=== PATIENT | female | born 1960 | race American Indian/Alaskan Native ===

== ENCOUNTER 2020-02-27 23:19 | Emergency (ER) | payer BC ==
--- NOTE | 2020-02-28 00:05 | XRay Report ---
CHEST 1 VIEW INDICATION / CLINICAL INFORMATION: cough fever weak. COMPARISON: None available. FINDINGS: SUPPORT DEVICES: None. HEART / MEDIASTINUM: Heart size is mildly enlarged LUNGS / PLEURA: No significant pulmonary or pleural abnormality. No pneumothorax. ADDITIONAL FINDINGS: No significant additional findings. IMPRESSION: Mild cardiomegaly. No acute pulmonary or pleural abnormality Signer Name: Eleuterio Prabhakar MD FACR Signed: 02/28/2020 12:00 AM Workstation Name: [id number]
--- NOTE | 2020-02-28 00:12 | Emergency Department Report ---
ED General Adult HPI - General Chief complaint: Fall Stated complaint: i came here because my son wanted me to get checked out Time Seen by Provider: 02/27/20 23:30 Source: patient, EMS ( EMS documentation not available at time of chart dictation ), RN notes reviewed Mode of arrival: Ambulatory Limitations: No Limitations - History of Present Illness Initial comments: During the entire history and physical examination, And for all subsequent patient encounters, this provider had on complete personal protective equipment as per this hospital's policy and procedures/protocols. The patient is a 59-year-old female who is not known to myself previously. She has a history of multiple myeloma, and reportedly takes chronic chemotherapy for this, and also reports a history of stem cell transplant, performed in 2018 at [facility]. She follows up with [facility] once a month. She did not follow-up with them this month, and her appointment has been rescheduled to the end of February. She presents to the ER with a complaint of "I came here because my son wants me to get checked out." She reports a history of few mechanical falls over the past few days and weeks. She typically walks with a walker, and reports that she was not walking with her walker, and she felt generally weak, and stumbled, landing on her bilateral elbows. Prior to the fall, there is no complaint of headache, neck pain, chest pain, abdominal pain, shortness of breath. There is a dry cough, without fever, vomiting, diaphoresis, rhinorrhea, or sore throat. There is no complaint of chest pain, abdominal pain, shortness of breath, irritative/obstructive urinary symptoms. The patient denies focal extremity weakness and/or numbness. She is not having physical pain at this time. She is mostly seeking reassurance. She does not have any coronavirus exposures that she is aware of. -: days(s) Consistency: intermittent Improves with: none Worsens with: none - Related Data Allergies Allergy/AdvReac Type Severity Reaction Status Date / Time No Known Allergies Allergy Verified 02/28/20 01:25 ED Review of Systems ROS: Stated complaint: COUGH,FEVER,WEAKNESS Other details as noted in HPI Constitutional: denies: chills, fever ENT: denies: throat pain, congestion Respiratory: denies: cough, wheezing Cardiovascular: denies: syncope Gastrointestinal: denies: abdominal pain Genitourinary: denies: urgency Musculoskeletal: denies: as per HPI Skin: as per HPI Neurological: as per HPI. denies: numbness, paresthesias, confusion Psychiatric: as per HPI Hematological/Lymphatic: as per HPI. denies: easy bleeding ED Physical Exam - General Limitations: No Limitations General appearance: alert, in no apparent distress - Head Head exam: Present: atraumatic, normocephalic - Eye Eye exam: Present: normal appearance, PERRL, EOMI, other (Visual acuity intact to finger counting, color perception, reading at a close distance). Absent: nystagmus - ENT ENT exam: Present: normal exam, normal orophraynx, mucous membranes moist, normal external ear exam - Neck Neck exam: Present: normal inspection, full ROM. Absent: tenderness, meningismus - Respiratory Respiratory exam: Present: normal lung sounds bilaterally. Absent: respiratory distress - Cardiovascular Cardiovascular Exam: Present: regular rate, normal rhythm, normal heart sounds. Absent: bradycardia, tachycardia, irregular rhythm, systolic murmur, diastolic murmur, rubs, gallop - GI/Abdominal GI/Abdominal exam: Present: soft. Absent: distended, tenderness, guarding, rebound, rigid, pulsatile mass - Extremities Exam Extremities exam: Present: normal inspection, full ROM, other (2+ pulses noted in the bilateral upper and lower extremities. There is no palpable cord. negative Homans sign. Muscular compartments are soft. The pelvis is stable.). Absent: pedal edema, calf tenderness - Back Exam Back exam: Present: normal inspection, full ROM. Absent: tenderness, CVA tenderness (R), CVA tenderness (L), paraspinal tenderness, vertebral tenderness - Neurological Exam Neurological exam: Present: alert, oriented X3, normal gait, other (There is no facial droop. The tongue is midline. Extraocular movements are intact bilaterally. There is 5 out of 5 strength in bilateral upper and lower extremities. Sensation is intact to light touch bilateral upper and lower extremities. There is no past-pointing. There is no pronator drift. There is normal [id number]. There is a normal gait.). Absent: motor sensory deficit - Psychiatric Psychiatric exam: Present: anxious - Skin Skin exam: Present: warm, dry, intact, normal color. Absent: rash ED Course Vital Signs 02/28/20 02/28/20 02/28/20 01:04 01:08 01:12 Temperature 101.9 F H Pulse Rate 75 Respiratory 15 16 Rate Blood Pressure 94/65 O2 Sat by Pulse 97 96 96 Oximetry 02/28/20 02/28/20 02/28/20 02:00 03:00 03:37 Temperature 98.8 F Pulse Rate Respiratory Rate Blood Pressure 94/52 92/56 O2 Sat by Pulse 96 95 Oximetry - Reevaluation(s) Reevaluation #1: 02/28/20 01:04 Differential diagnosis, including but not limited to: Deconditioning, general medical evaluation, electrolyte derangement, anemia, pneumonia, coronavirus screening Assessment and plan: 59-year-old female with a history of stem cell transplant and multiple myeloma, without fever, sore throat, rhinorrhea, chest pain, history of mechanical fall, and dry cough. I do not have a high pretest pr obability for coronavirus. The patient is currently afebrile with reassuring vital signs with a benign and unremarkable physical examination, and walks with a steady gait without assistance. She does not have any long bony tenderness. We will check appropriate screening laboratory studies, including ferritin, LDH, and d-dimer to assist in risk stratification for possible coronavirus. However, do not suspect active disease at this time. She endorses a dry cough for the past 4 to 5 days. X-ray the chest is unremarkable. Saturating well on room air. We will reassess after her initial data points have resulted. Reevaluation #2: 02/28/20 02:22 Laboratory studies are reviewed and appreciated. Patient resting comfortably and she is in no acute distress. Today's day 5 of symptoms. I discussed the patient's laboratory studies, vital signs, and fever with the patient. She states that she always has "low blood pressure." She is not hypoxic and has no respiratory symptoms. She is not really experiencing any constitutional symptoms at this time. The patient states that she is reliable to go home, self monitor, self quarantine as she has been doing, and have her son carefully watch over her. I had an extensive discussion with the patient, and we discussed various options, including the aforementioned. I also discussed the option of admitting the pa tient to the hospital for observation for supportive care. However, the patient does not want to be admitted to the hospital at this time, as she is concerned about exposure to the coronavirus. Patient and I discussed risks, benefits, alternatives to discharge home with self quarantine and monitor ing, versus admission to the hospital for observation. The patient is quite adamant and certain that she would like to be discharged home, and endorses that she is reliable to follow-up. She also endorses that she is reliable to have her son watch over her. Therefore, through shared decision making, we agreed to discharge the patient to follow-up in 2 days for a repeat checkup and evaluation. Patient's information will be submitted to the [facility] persons under investigation website. Reevaluation #3: 02/28/20 18:16 Called patient to follow-up. She states that she feels "fine." No respiratory issues, no physical pain at this time. She has also gotten in touch with her outpatient physician. I informed the patient that if she felt this way tomorrow, she did not necessarily need to come in for recheck. She has verbalized understanding. She continues to reiterate that she is reliable for follow-up. ED Medical Decision Making - Lab Data Result diagrams: 02/28/20 00:32 02/28/20 00:32 Vital Signs 02/28/20 01:08 Temperature 101.9 F H Pulse Rate 75 Respiratory 15 Rate Blood Pressure 94/65 O2 Sat by Pulse 96 Oximetry Lab Results 02/28/20 02/28/20 02/28/20 Range/Units 00:32 00:32 00:32 WBC 3.2 L (4.5-11.0) K/mm3 RBC 3.27 L (3.65-5.03) M/mm3 Hgb 10.9 (10.1-14.3) gm/dl Hct 32.4 (30.3-42.9) % MCV 99 H (79-97) fl MCH 33 H (28-32) pg MCHC 34 (30-34) % RDW 14.8 (13.2-15.2) % Plt Count 118 L (140-440) K/mm3 PT 16.3 H (12.2-14.9) Sec. INR 1.29 H (0.87-1.13) APTT 37.6 H (24.2-36.6) Sec. D-Dimer 1230.88 H (0-234) ng/mlDDU Sodium 134 L (137-145) mmol/L Potassium 3.8 (3.6-5.0) mmol/L Chloride 96.8 L (98-107) mmol/L Carbon Dioxide 25 (22-30) mmol/L Anion Gap 16 mmol/L BUN 26 H (7-17) mg/dL Creatinine 1.2 (0.7-1.2) mg/dL Estimated GFR 55 ml/min BUN/Creatinine Ratio 22 % Glucose 106 H (65-100) mg/dL Calcium 8.9 (8.4-10.2) mg/dL Magnesium 1.80 (1.7-2.3) mg/dL Total Bilirubin 3.30 H (0.1-1.2) mg/dL AST 101 H (5-40) units/L ALT 69 H (7-56) units/L Alkaline Phosphatase 163 H (35-129) units/L Total Creatine Kinase 87 (30-135) units/L Total Protein 7.8 (6.3-8.2) g/dL Albumin 3.0 L (3.9-5) g/dL Albumin/Globulin Ratio 0.6 % - Radiology Data Radiology results: report reviewed, image reviewed X-ray of the chest is negative for acute disease Critical care attestation.: If time is entered above; I have spent that time in minutes in the direct care of this critically ill patient, excluding procedure time. ED Disposition Clinical Impression: Acute febrile illness, History of fall Disposition: DC-01 TO HOME OR SELFCARE Is pt being admited?: No Does the pt Need Aspirin: No Condition: Stable Instructions: COVID-19 Additional Instructions: Follow-up with your primary care physician, or [facility] physician or return to the emergency room in 2 to 3 days for a repeat checkup/evaluation. Wash hands with soap and water thoroughly and often. Do not touch hands to face, eyes or mouth. Wash hands before handling food, eating, and after coughing, sneezing, and using the restroom. Patient's demographic information and contact information were transmitted and sent to the [facility] form for persons under investigation for possible coronavirus. They may be contacting the patient. Patient may take Tylenol [id number], 650 mg by mouth, every 4-6 hours as needed for fever and/or pain. Return to the emergency room right away with new, worsened or different symptoms, or symptoms not present on the initial emergency room evaluation. Please do not ambulate without assistance, do not walk without assistance, and when walking, always use a cane or a walker. Referrals: TAMIKO DASH MD [Staff Physician] - 3-5 Days
[2020-02-28] MEDS ORDERED: SODIUM CHLORIDE 0.9% 1000 ML 1,000 ML IV ONE (01:24)
[2020-02-28] MEDS ORDERED: ACETAMINOPHEN 500 MG TAB ONE (01:25)
[2020-02-28 01:35] LABS: Hematocrit 32.4 % (30.3-42.9); Hemoglobin 10.9 gm/dl (10.1-14.3); Mean Corpuscular HGB Conc 34 % (30-34); Mean Corpuscular Volume 99 fl (79-97); Platelet Count 118 K/mm3 (140-440); Red Blood Count 3.27 M/mm3 (3.65-5.03); Red Cell Distribution Width 14.8 % (13.2-15.2)
[2020-02-28 01:43] LABS: INR 1.29 (0.87-1.13)
[2020-02-28 01:44] LABS: Partial Thromboplastin Time 37.6 Sec. (24.2-36.6)
[2020-02-28 02:03] LABS: Calcium 8.9 mg/dL (8.4-10.2)
[2020-02-28 02:36] LABS: Band Neutrophils # (Manual) 0.2 K/mm3; Basophils % (Manual) 0 % (0.0-1.8); Total Cells Counted 100
[2020-02-28 02:37] LABS: Platelet Estimate Consistent w Auto; Tear Drop Cells Rare
[2020-02-28 03:37] VITALS: BP 92/56
== END 2020-02-28 04:03 | disposition home or self-care (01) ==
LOC: ED 23:19
DX: R69 Illness, unspecified (principal); Z91.81 History of falling
CPT/HCPCS: 36415; 71045; 80053; 82550; 82728; 83615; 83735; 85007; 85025; 85379; 85610; 85730; 99284; J7030